=== PATIENT | female | born 1990 | race Hispanic/Latino ===

== ENCOUNTER 2022-10-03 23:15 | Emergency (ER) | payer SELFPAY ==
[~2022-10-03] VITALS: Ht 167.6 cm; Wt 81.6 kg
[2022-10-03] MEDS ORDERED: IBUPROFEN 600 MG TAB PO STA (23:21)
[2022-10-03] MEDS ORDERED: IBUPROFEN 600 MG TAB ONE (23:37)
[2022-10-04] MEDS ORDERED: NAPROSYN500 MG PO (00:19)
== END 2022-10-04 00:56 | disposition home or self-care (01) ==
LOC: ER 23:21
DX: R07.89 Other chest pain (principal)
CPT/HCPCS: 71101; 99283